=== PATIENT | female | born 1995 | race Caucasian/White ===

== ENCOUNTER 2017-05-11 04:29 | Inpatient (IN) | payer BC, OTHER ==
[2017-05-11 05:35] LABS: Basophils % (A) 0 %; CH 30.9; CHCM 34.7; Eosinophils % (A) 0 %; HCT 34.8 % (34.0-46.0); HDW 2.68; HGB 12.5 gm/dL (11.4-16.0); Luc # (Auto) 0.11; Luc % (Auto) 1; Lymphocytes # (A) 1.3 k/uL (1.0-4.8); Lymphocytes % (A) 7 %; MCHC 35.9 g/dL (31.0-37.0); MCV 89.2 fL (80.0-100.0); Monocytes # (A) 0.8 k/uL (0-1.0); Monocytes % (A) 4 %; Neutrophils # (A) 16.5 k/uL (1.3-7.7); Neutrophils % (A) 88 %; RDW 14.3 % (11.5-15.5); WBC 18.7 k/uL (4.0-11.0); WBC (Perox) 18.06
[2017-05-11 05:41] LABS: Appearance,Urine Cloudy (Clear); Bacteria,Urine Rare /hpf; Bilirubin,Urine Negative (Negative); Glucose,Urine (UA) Negative (Negative); Ketones,Urine 1+ (Negative); Leukocyte Esterase,Urine Trace (Negative); Mucus,Urine Rare /hpf; Nitrite,Urine Negative (Negative); PH, Urine 5.5 (5.0-8.0); Particle Count 8193; Protein,Urine Negative (Negative); RBC,Urine 1 /hpf (0-5); Specific Gravity,Urine 1.016 (1.001-1.035); Squamous Epithelial Cell,Urine 12 /hpf (0-4); UA Billing (MACRO vs. MICRO) MICRO; Urobilinogen,Urine <2.0 mg/dL (<2.0); WBC,Urine 6 /hpf (0-5)
[2017-05-11 05:50] LABS: ALT 20 U/L (9-52); AST 17 U/L (14-36); Alkaline Phosphatase 54 U/L (38-126); Amylase 45 U/L (30-110); Anion Gap 12 mmol/L; Blood Urea Nitrogen 9 mg/dL (7-17); Calcium 9.3 mg/dL (8.4-10.2); Carbon Dioxide 21 mmol/L (22-30); Chloride 105 mmol/L (98-107); Glucose 93 mg/dL (74-99); Non-African American GFR(MDRD) >60 (>60 ml/min/1.73 sqM); Sodium 138 mmol/L (137-145); Total Bilirubin 1.9 mg/dL (0.2-1.3); Total Protein 7.5 g/dL (6.3-8.2)
[2017-05-11] MEDS ORDERED: MORPHINE SULFATE 4 MG/ML SYRINGE IV STA (06:05)
[2017-05-11] MEDS ORDERED: RX INFO: IV CONTRAST WAS GIVEN 1 EACH MISC MISCELLANE PRN (06:05)
[2017-05-11] MEDS ORDERED: KETOROLAC 30 MG/ML 1 ML VIAL IVP STA ×2 (06:05→14:18)
[2017-05-11] MEDS ORDERED: ACETAMINOPHEN TAB 325 MG TAB PO STA (06:39)
[2017-05-11] MEDS ORDERED: AMPICILLIN-SULBACTAM 3 GM in SODIUM CHLORIDE 0.9% 100 ML IVPB STA (07:21)
--- NOTE | 2017-05-11 07:23 | CT ---
EXAM: CT Abdomen and Pelvis With Intravenous Contrast CLINICAL HISTORY: Patient having abdomen/gall bladder pain TECHNIQUE: Axial computed tomography images of the abdomen and pelvis with intravenous contrast. CTDI is 5.4 mGy and DLP is 397.5 mGy-cm. This CT exam was performed using one or more of the following dose reduction techniques: automated exposure control, adjustment of the mA and/or kV according to patient size, and/or use of iterative reconstruction technique. Coronal and sagittal reformatted images were created and reviewed. COMPARISON: No relevant prior studies available. FINDINGS: Lower thorax: No acute findings. ABDOMEN: Liver: Unremarkable. No mass. Gallbladder and bile ducts: Distended gallbladder with gallstone. No biliary obstruction. Pancreas: Unremarkable. No mass. No ductal dilation. Spleen: Unremarkable. No splenomegaly. Adrenals: Unremarkable. No mass. Kidneys and ureters: Cortical striated perfusion defect in bilateral kidneys are worrisome for pyelonephritis. Mild right perinephric stranding. 8 mm low-density lesion in the right kidney may be a cyst. No ureteral or bladder stone. No renal obstruction. Stomach and bowel: Mild fluid filled pelvic small bowel loops. No bowel obstruction or inflammatory changes. No mucosal thickening. Appendix: Normal appendix. PELVIS: Bladder: See above. Reproductive: 2.2 cm crenated enhancing left ovarian cyst/follicle. Small free fluid in the pelvis likely physiologic. ABDOMEN and PELVIS: Intraperitoneal space: See above. Bones/joints: Schmorl's nodules of the thoracic spine. No acute fracture. No dislocation. Soft tissues: Unremarkable. Vasculature: Unremarkable. No abdominal aortic aneurysm. Lymph nodes: Small mesenteric and retroperitoneal lymph nodes. IMPRESSION: 1. Distended gallbladder with gallstone. No biliary obstruction. 2. Cortical striated perfusion defect in bilateral kidneys are worrisome for pyelonephritis. Mild right perinephric stranding. No renal obstruction. 3. Normal appendix. 4. 2.2 cm crenated enhancing left ovarian cyst/follicle. Small free fluid in the pelvis likely physiologic.
--- NOTE | 2017-05-11 07:48 | ED ---
Abdominal Pain HPI - General Source: patient Mode of arrival: ambulatory Limitations: no limitations - History of Present Illness Complaint: abdominal pain Onset/Timin -: hour(s) Location: RUQ Radiation: none Severity: severe Quality: aching Consistency: constant Improves With: nothing Worsens With: other (Palpation) Associated Symptoms: nausea, vomiting - Related Data LMP (females 10-50): last week <Patrick Stevens - Last Filed: 05/11/17 07:49> <Robin Antunez - Last Filed: 05/11/17 08:29> - General Chief Complaint: Abdominal Pain Stated Complaint: abd/gall bladder pain Time Seen by Provider: 05/11/17 05:30 - History of Present Illness Initial Comments: This patient is a 21-year-old woman who presents to be evaluated for right upper quadrant pain. The patient states that the pain had been going on since about 10 PM last night. She has had multiple episodes of this and has been admitted in the hospital on 3 separate occasions previously. The patient describes the pain as an aching, continuous but with a little bit of colicky feature. The pain is now severe. She has not noted any relieving factors, but it is worsened by pressing on her abdomen. She has had a couple of rounds of vomiting and does have nausea. She denies any change in bowel movements, last of which was yesterday and was normal. She has not had any change in urination. She states that the last menstrual. She had was at the end of April and was normal. She does not have any vaginal discharge. (Patrick Stevens) - Related Data Home Medications Medication Instructions Recorded Confirmed No Known Home Medications [No 05/11/17 05/11/17 Known Home Medications] Allergies Allergy/AdvReac Type Severity Reaction Status Date / Time No Known Allergies Allergy Verified 05/11/17 07:26 Review of Systems ROS Other: All systems not noted in ROS Statement are negative. Constitutional: Reports: fever. Denies: chills Respiratory: Denies: cough, dyspnea Cardiovascular: Denies: chest pain, palpitations, edema Gastrointestinal: Reports: abdominal pain, nausea, vomiting. Denies: diarrhea, constipation, hematemesis, melena, hematochezia Genitourinary: Denies: dysuria, hematuria Musculoskeletal: Denies: back pain Skin: Denies: rash Neurological: Denies: headache, weakness, numbness <HildaPatrick - Last Filed: 05/11/17 07:49> ROS Other: All systems not noted in ROS Statement are negative. <Robin Antunez - Last Filed: 05/11/17 08:29> ROS Statement: Those systems with pertinent positive or pertinent negative responses have been documented in the HPI. Past Medical History Additional Past Medical History / Comment(s): "gall stones", "irreg heart beat" , kidney infection History of Any Multi-Drug Resistant Organisms: None Reported Past Surgical History: No Surgical Hx Reported Past Psychological History: No Psychological Hx Reported Smoking Status: Current some day smoker Past Alcohol Use History: Abuse, Daily Past Drug Use History: None Reported <Patrick Stevens - Last Filed: 05/11/17 07:49> General Exam Limitations: no limitations General appearance: alert, in no apparent distress Head exam: Absent: atraumatic, normocephalic Eye exam: Present: normal appearance. Absent: scleral icterus, conjunctival injection ENT exam: Present: normal oropharynx Neck exam: Present: normal inspection Respiratory exam: Present: normal lung sounds bilaterally. Absent: respiratory distress, wheezes, rales, rhonchi, stridor Cardiovascular Exam: Present: regular rate, normal rhythm, normal heart sounds. Absent: systolic murmur, diastolic murmur, rubs, gallop GI/Abdominal exam: Present: soft, tenderness (Right upper quadrant), normal bowel sounds. Absent: distended, guarding, rebound, rigid, mass, pulsatile mass , hernia Extremities exam: Present: normal inspection, normal capillary refill. Absent: pedal edema, calf tenderness Back exam: Present: normal inspection. Absent: CVA tenderness (R), CVA tenderness (L) Neurological exam: Present: alert Psychiatric exam: Present: normal affect Skin exam: Present: warm, dry, intact, normal color. Absent: rash <Patrick Stevens - Last Filed: 05/11/17 07:49> Course <Patrick Stevens - Last Filed: 05/11/17 07:49> <Robin Antunez - Last Filed: 05/11/17 08:29> Vital Signs 05/11/17 05/11/17 04:39 06:34 Temperature 100.9 F H 102.4 F H Pulse Rate 89 87 Respiratory 16 18 Rate Blood Pressure 97/53 95/62 O2 Sat by Pulse 99 98 Oximetry - Reevaluation(s) Reevaluation #1: 05/11/17 07:23 Patient reevaluated by myself, Dr. Antunez. Patient resting comfortably in bed. Abdomen soft with moderate right upper quadrant tenderness. Patient was updated on results. 05/11/17 08:27 Case was discussed with Dr. Espinosa, who will admit for surgical call. 05/11/17 08:27 Patient does meet sepsis criteria diagnosed at 8:20 AM. Patient has been given antibiotics and IV fluids. Lactic acid was drawn. Blood cultures were drawn. Admission orders written. (Robin Antunez) Medical Decision Making - Lab Data Result diagrams: 05/11/17 05:00 05/11/17 05:00 <Patrick Stevens - Last Filed: 05/11/17 07:49> - Lab Data Result diagrams: 05/11/17 05:00 05/11/17 05:00 - Radiology Data Radiology results: report reviewed (Computed tomography scan of the abdomen pelvis shows distended gallbladder with gallstones. Possible pyelonephritis. Normal appendix. 2 cm left ovary cyst/follicle.) <Robin Antunez - Last Filed: 05/11/17 08:29> - Lab Data Lab Results 05/11/17 05/11/17 05/11/17 Range/Units 05:00 05:00 05:00 WBC 18.7 H (4.0-11.0) k/uL RBC 3.90 (3.80-5.40) m/uL Hgb 12.5 (11.4-16.0) gm/dL Hct 34.8 (34.0-46.0) % MCV 89.2 (80.0-100.0) fL MCH 32.0 (25.0-35.0) pg MCHC 35.9 (31.0-37.0) g/dL RDW 14.3 (11.5-15.5) % Plt Count 311 (150-450) k/uL Neutrophils % 88 % Lymphocytes % 7 % Monocytes % 4 % Eosinophils % 0 % Basophils % 0 % Neutrophils # 16.5 H (1.3-7.7) k/uL Lymphocytes # 1.3 (1.0-4.8) k/uL Monocytes # 0.8 (0-1.0) k/uL Eosinophils # 0.0 (0-0.7) k/uL Basophils # 0.0 (0-0.2) k/uL Sodium 138 (137-145) mmol/L Potassium 4.0 (3.5-5.1) mmol/L Chloride 105 (98-107) mmol/L Carbon Dioxide 21 L (22-30) mmol/L Anion Gap 12 mmol/L BUN 9 (7-17) mg/dL Creatinine 0.77 (0.52-1.04) mg/dL Est GFR (MDRD) Af Amer >60 (>60 ml/min/1.73 sqM) Est GFR (MDRD) Non-Af >60 (>60 ml/min/1.73 sqM) Glucose 93 (74-99) mg/dL Plasma Lactic Acid Wilberto (0.7-2.0) mmol/L Calcium 9.3 (8.4-10.2) mg/dL Total Bilirubin 1.9 H (0.2-1.3) mg/dL AST 17 (14-36) U/L ALT 20 (9-52) U/L Alkaline Phosphatase 54 (38-126) U/L Total Protein 7.5 (6.3-8.2) g/dL Albumin 4.4 (3.5-5.0) g/dL Amylase 45 (30-110) U/L Lipase 97 (23-300) U/L Urine Color Urine Appearance (Clear) Urine pH (5.0-8.0) Ur Specific [place] (1.001-1.035) Urine Protein (Negative) Urine Glucose (UA) (Negative) Urine Ketones (Negative) Urine Blood (Negative) Urine Nitrite (Negative) Urine Bilirubin (Negative) Urine Urobilinogen (<2.0) mg/dL Ur Leukocyte Esterase (Negative) Urine RBC (0-5) /hpf Urine WBC (0-5) /hpf Ur Squamous Epith Cells (0-4) /hpf Urine Bacteria (None) /hpf Urine Mucus (None) /hpf Urine HCG, Qual Not Detected (Not Detectd) 05/11/17 05/11/17 Range/Units 05:00 05:00 WBC (4.0-11.0) k/uL RBC (3.80-5.40) m/uL Hgb (11.4-16.0) gm/dL Hct (34.0-46.0) % MCV (80.0-100.0) fL MCH (25.0-35.0) pg MCHC (31.0-37.0) g/dL RDW (11.5-15.5) % Plt Count (150-450) k/uL Neutrophils % % Lymphocytes % % Monocytes % % Eosinophils % % Basophils % % Neutrophils # (1.3-7.7) k/uL Lymphocytes # (1.0-4.8) k/uL Monocytes # (0-1.0) k/uL Eosinophils # (0-0.7) k/uL Basophils # (0-0.2) k/uL Sodium (137-145) mmol/L Potassium (3.5-5.1) mmol/L Chloride (98-107) mmol/L Carbon Dioxide (22-30) mmol/L Anion Gap mmol/L BUN (7-17) mg/dL Creatinine (0.52-1.04) mg/dL Est GFR (MDRD) Af Amer (>60 ml/min/1.73 sqM) Est GFR (MDRD) Non-Af (>60 ml/min/1.73 sqM) Glucose (74-99) mg/dL Plasma Lactic Acid Wilberto 0.8 (0.7-2.0) mmol/L Calcium (8.4-10.2) mg/dL Total Bilirubin (0.2-1.3) mg/dL AST (14-36) U/L ALT (9-52) U/L Alkaline Phosphatase (38-126) U/L Total Protein (6.3-8.2) g/dL Albumin (3.5-5.0) g/dL Amylase (30-110) U/L Lipase (23-300) U/L Urine Color Yellow Urine Appearance Cloudy H (Clear) Urine pH 5.5 (5.0-8.0) Ur Specific [place] 1.016 (1.001-1.035) Urine Protein Negative (Negative) Urine Glucose (UA) Negative (Negative) Urine Ketones 1+ H (Negative) Urine Blood Negative (Negative) Urine Nitrite Negative (Negative) Urine Bilirubin Negative (Negative) Urine Urobilinogen <2.0 (<2.0) mg/dL Ur Leukocyte Esterase Trace H (Negative) Urine RBC 1 (0-5) /hpf Urine WBC 6 H (0-5) /hpf Ur Squamous Epith Cells 12 H (0-4) /hpf Urine Bacteria Rare H (None) /hpf Urine Mucus Rare H (None) /hpf Urine HCG, Qual (Not Detectd) Disposition <Patrick Stevens - Last Filed: 05/11/17 07:49> Decision Time: 08:29 <Robin Antunez - Last Filed: 05/11/17 08:29> Clinical Impression: Sepsis, Acute cholecystitis Disposition: ADMITTED IP TO THIS HOSP Referrals: Nonstaff,Physician [REFERRING] - 1-2 days
[2017-05-11] MEDS ORDERED: SODIUM CHLORIDE 0.9% 1,000 ML IV STA (08:27)
[2017-05-11] MEDS ORDERED: NALOXONE 0.4 MG/ML 1 ML VIAL IV PRN (08:29)
--- NOTE | 2017-05-11 09:33 | P.GSHP ---
History of Present Illness H&P Date: 05/11/17 Chief Complaint: Acute cholecystitis The patient is a 21-year-old female who has a long-standing history of gallstones over the last 5 years. She delayed any surgery secondary to her fear of being under from general anesthesia. Separately she had a recent attack approximately 2-3 weeks ago. She was seen in [facility] where she was told she may have passed a stone. She subsequently was released. She reports that her last meal was a banana yesterday. Since then she complains of persistent right upper quadrant abdominal pain. - Review of Systems Comment: REVIEW OF ORGAN SYSTEMS: CONSTITUTIONAL: Has fevers. Has recent weight loss. HEENT: Denies any trouble with vision, hearing or nosebleeds. No difficulty swallowing. LYMPHATIC: The patient denies any lumps and bumps around the neck. ENDOCRINE: Denies any thyroid disorders. Denies any blood sugar glucose intolerance. RESPIRATORY: Denies pneumonia. Denies any troubles with breathing or dyspnea on exertion. CARDIOVASCULAR: Denies any chest pain, palpitations, or recent heart attacks. GASTROINTESTINAL: Denies heart burn, constipation or bright red blood per rectum. GENITOURINARY: Denies any blood in urine or increased urinary frequency. MUSCULOSKELETAL: Denies any back pain, stiffness, joint arthritis. NEUROLOGIC: Denies any numbness or tingling along the distal extremities. No seizure disorders or headaches. PSYCHIATRIC: Denies depression or suidical ideation. Has anxiety. HEMATOLOGIC: Denies any abnormal bleeding or bruising. Past Medical History Additional Past Medical History / Comment(s): "gall stones", "irreg heart beat" , kidney infection. History of Any Multi-Drug Resistant Organisms: None Reported Past Surgical History: No Surgical Hx Reported Additional Past Anesthesia/Blood Transfusion Reaction / Comment(s): Pt has never had anesthesia. Past Psychological History: Anxiety Additional Psychological History / Comment(s): Pt resides with her father. She is independent. Smoking Status: Current some day smoker Past Alcohol Use History: Abuse, Daily Additional Past Alcohol Use History / Comment(s): Pt states she has 1-2 alcoholic beverages a day. Past Drug Use History: Marijuana Additional Drug Use History / Comment(s): Pt occasionally smokes marijuana. - Past Family History Mother Family Medical History: No Reported History Father Family Medical History: Renal Disease Additional Family Medical History / Comment(s): Father has had kidney stones. Medications and Allergies Home Medications Medication Instructions Recorded Confirmed Type No Known Home Medications [No 05/11/17 05/11/17 History Known Home Medications] Allergies Allergy/AdvReac Type Severity Reaction Status Date / Time No Known Allergies Allergy Verified 05/11/17 07:26 Surgical - Exam Vital Signs Temp Pulse Resp BP Pulse Ox 100.9 F H 89 16 97/53 99 05/11/17 04:39 05/11/17 04:39 05/11/17 04:39 05/11/17 04:39 05/11/17 04:39 GENERAL: Well developed and in no acute distress. Pleasant. HEENT: No sclera icterus. Extraocular movements grossly intact. Moist buccal mucosa. Head is atraumatic, normocephalic. Hears conversational speech. No nasal drainage. NECK: Supple without lymphadenopathy. No JV distention. CHEST: Non-labored respirations and equal bilateral excursions. CARDIOVASCULAR: Regular rate and rhythm. Palpable 2+ radial pulses. ABDOMEN: Soft. Nondistended. Tender along right upper quadrant. No diffuse peritonitis. MUSCULOSKELETAL: No clubbing, cyanosis or edema. NEUROLOGIC: No focal or lateralizing signs. PSYCH: Appropriate affect. Alert and oriented to person, place and time. Results - Labs 05/11/17 05:00 05/11/17 05:00 Abnormal Lab Results - Last 24 Hours (Table) 05/11/17 05/11/17 05/11/17 Range/Units 05:00 05:00 05:00 WBC 18.7 H (4.0-11.0) k/uL Neutrophils # 16.5 H (1.3-7.7) k/uL Carbon Dioxide 21 L (22-30) mmol/L Total Bilirubin 1.9 H (0.2-1.3) mg/dL Urine Appearance Cloudy H (Clear) Urine Ketones 1+ H (Negative) Ur Leukocyte Esterase Trace H (Negative) Urine WBC 6 H (0-5) /hpf Ur Squamous Epith Cells 12 H (0-4) /hpf Urine Bacteria Rare H (None) /hpf Urine Mucus Rare H (None) /hpf Diabetes panel 05/11/17 Range/Units 05:00 Sodium 138 (137-145) mmol/L Potassium 4.0 (3.5-5.1) mmol/L Chloride 105 (98-107) mmol/L Carbon Dioxide 21 L (22-30) mmol/L BUN 9 (7-17) mg/dL Creatinine 0.77 (0.52-1.04) mg/dL Glucose 93 (74-99) mg/dL Calcium 9.3 (8.4-10.2) mg/dL AST 17 (14-36) U/L ALT 20 (9-52) U/L Alkaline Phosphatase 54 (38-126) U/L Total Protein 7.5 (6.3-8.2) g/dL Albumin 4.4 (3.5-5.0) g/dL Calcium panel 05/11/17 Range/Units 05:00 Calcium 9.3 (8.4-10.2) mg/dL Albumin 4.4 (3.5-5.0) g/dL Pituitary panel 05/11/17 Range/Units 05:00 Sodium 138 (137-145) mmol/L Potassium 4.0 (3.5-5.1) mmol/L Chloride 105 (98-107) mmol/L Carbon Dioxide 21 L (22-30) mmol/L BUN 9 (7-17) mg/dL Creatinine 0.77 (0.52-1.04) mg/dL Glucose 93 (74-99) mg/dL Calcium 9.3 (8.4-10.2) mg/dL Adrenal panel 05/11/17 Range/Units 05:00 Sodium 138 (137-145) mmol/L Potassium 4.0 (3.5-5.1) mmol/L Chloride 105 (98-107) mmol/L Carbon Dioxide 21 L (22-30) mmol/L BUN 9 (7-17) mg/dL Creatinine 0.77 (0.52-1.04) mg/dL Glucose 93 (74-99) mg/dL Calcium 9.3 (8.4-10.2) mg/dL Total Bilirubin 1.9 H (0.2-1.3) mg/dL AST 17 (14-36) U/L ALT 20 (9-52) U/L Alkaline Phosphatase 54 (38-126) U/L Total Protein 7.5 (6.3-8.2) g/dL Albumin 4.4 (3.5-5.0) g/dL - Imaging CT scan - abdomen: report reviewed, image reviewed CT scan - pelvis: report reviewed, image reviewed (Images reviewed consistent with gallbladder with gallstone. No free fluid identified within the pelvis.) Assessment and Plan (1) Right upper quadrant pain Status: Acute (2) Anxiety Status: Acute (3) Acute cholecystitis Status: Acute (4) Sepsis Status: Acute (5) Elevated bilirubin Status: Acute Plan: 1. She has features consistent with sepsis. Recommend IV antibiotics. 2. Aggressive IV fluid hydration. 3. Full inpatient hospitalization secondary to sepsis. 4. Will repeat complete metabolic panel for choledocholithiasis. 5. Surgical intervention pending resolution of elevated bilirubin.
[2017-05-11] MEDS: SODIUM CHLORIDE 0.9% 2,000 ML IV ONE ×2 (10:07→11:21)
[2017-05-11] MEDS: SODIUM CHLORIDE 0.9% 1,000 ML IV SCH ×2 (10:07→19:07)
[2017-05-11] MEDS: metroNIDAZOLE-NS PMX 500 MG in SALINE 1 100ML.BAG IVPB SCH ×2 (10:09→16:50)
[2017-05-11] MEDS: PANTOPRAZOLE 40 MG/10 ML VIAL IV SCH (10:10)
[2017-05-11] MEDS: AMPICILLIN-SULBACTAM 3 GM in SODIUM CHLORIDE 0.9% 100 ML IVPB SCH ×3 (12:28→22:51)
[2017-05-11] MEDS: MORPHINE SULFATE 4 MG/ML SYRINGE IV PRN ×2 (12:28→19:31)
[2017-05-11] MEDS: ACETAMINOPHEN IV (For NPO) 650 MG in EMPTY BAG 1 BAG IVPB SCH ×2 (15:32→21:21)
[2017-05-11 15:57] LABS: Basophils % (A) 0 %; CH 30.4; CHCM 33.6; Eosinophils % (A) 0 %; HCT 31.9 % (34.0-46.0); HDW 2.64; HGB 10.7 gm/dL (11.4-16.0); Luc # (Auto) 0.08; Luc % (Auto) 1; Lymphocytes # (A) 0.9 k/uL (1.0-4.8); Lymphocytes % (A) 6 %; MCH 30.6 pg (25.0-35.0); MCHC 33.7 g/dL (31.0-37.0); MCV 90.7 fL (80.0-100.0); Mean Platelet Volume 8.6; Monocytes # (A) 0.8 k/uL (0-1.0); Monocytes % (A) 5 %; Neutrophils # (A) 13.7 k/uL (1.3-7.7); Neutrophils % (A) 89 %; RBC 3.51 m/uL (3.80-5.40); RDW 14.1 % (11.5-15.5); WBC 15.5 k/uL (4.0-11.0); WBC (Perox) 15.33
[2017-05-11 16:16] LABS: ALT 23 U/L (9-52); AST 13 U/L (14-36); Alkaline Phosphatase 45 U/L (38-126); Anion Gap 8 mmol/L; Blood Urea Nitrogen 7 mg/dL (7-17); Calcium 8.2 mg/dL (8.4-10.2); Carbon Dioxide 21 mmol/L (22-30); Chloride 110 mmol/L (98-107); Glucose 94 mg/dL (74-99); Non-African American GFR(MDRD) >60 (>60 ml/min/1.73 sqM); Sodium 139 mmol/L (137-145); Total Bilirubin 1.9 mg/dL (0.2-1.3); Total Protein 5.8 g/dL (6.3-8.2)
[2017-05-11 16:17] LABS: Potassium 3.7 mmol/L (3.5-5.1)
[2017-05-11] MEDS: HEPARIN SODIUM,PORCINE 5,000 UNIT/ML 1 ML VIAL SQ SCH (17:02)
[2017-05-11] MEDS ORDERED: KETOROLAC 30 MG/ML 1 ML VIAL IVP SCH (18:00)
[2017-05-12] MEDS: metroNIDAZOLE-NS PMX 500 MG in SALINE 1 100ML.BAG IVPB SCH ×4 (00:02→23:40)
[2017-05-12] MEDS: HEPARIN SODIUM,PORCINE 5,000 UNIT/ML 1 ML VIAL SQ SCH ×4 (00:05→23:40)
[2017-05-12] MEDS: SODIUM CHLORIDE 0.9% 1,000 ML IV SCH ×3 (02:37→21:39)
[2017-05-12] MEDS: ONDANSETRON 4 MG/2 ML VIAL IVP PRN ×2 (02:37→13:35)
[2017-05-12] MEDS: MORPHINE SULFATE 4 MG/ML SYRINGE IV PRN ×3 (03:07→12:19)
[2017-05-12] MEDS: ACETAMINOPHEN IV (For NPO) 650 MG in EMPTY BAG 1 BAG IVPB SCH ×2 (03:22→09:45)
[2017-05-12] MEDS: AMPICILLIN-SULBACTAM 3 GM in SODIUM CHLORIDE 0.9% 100 ML IVPB SCH ×4 (05:27→23:39)
[2017-05-12 07:16] LABS: Basophils % (A) 0 %; CH 30.7; CHCM 33.9; Eosinophils % (A) 0 %; HCT 31.5 % (34.0-46.0); HDW 2.68; HGB 10.9 gm/dL (11.4-16.0); Luc # (Auto) 0.14; Luc % (Auto) 1; Lymphocytes # (A) 1.1 k/uL (1.0-4.8); Lymphocytes % (A) 7 %; MCH 31.6 pg (25.0-35.0); MCHC 34.6 g/dL (31.0-37.0); MCV 91.1 fL (80.0-100.0); Mean Platelet Volume 7.3; Monocytes # (A) 0.8 k/uL (0-1.0); Monocytes % (A) 5 %; Neutrophils # (A) 14.4 k/uL (1.3-7.7); Neutrophils % (A) 87 %; RBC 3.46 m/uL (3.80-5.40); RDW 14.3 % (11.5-15.5); WBC 16.4 k/uL (4.0-11.0); WBC (Perox) 17.03
[2017-05-12 08:13] LABS: ALT 19 U/L (9-52); AST 13 U/L (14-36); Alkaline Phosphatase 44 U/L (38-126); Anion Gap 9 mmol/L; Blood Urea Nitrogen 5 mg/dL (7-17); Calcium 8.3 mg/dL (8.4-10.2); Carbon Dioxide 22 mmol/L (22-30); Chloride 106 mmol/L (98-107); Glucose 84 mg/dL (74-99); Non-African American GFR(MDRD) >60 (>60 ml/min/1.73 sqM); Potassium 3.7 mmol/L (3.5-5.1); Sodium 137 mmol/L (137-145); Total Bilirubin 1.3 mg/dL (0.2-1.3); Total Protein 5.7 g/dL (6.3-8.2)
--- NOTE | 2017-05-12 08:58 | US ---
EXAMINATION TYPE: US gallbladder DATE OF EXAM: 05/12/2017 COMPARISON: CT 05/11/2017 CLINICAL HISTORY: Right upper quadrant pain. EXAM MEASUREMENTS: Liver Length: 16.0 cm Gallbladder Wall: 0.3 cm CBD: 0.7 cm Right Kidney: 11.7 x 4.6 x 6.2 cm Pancreas: wnl Liver: homogeneous Gallbladder: gallstone, debris (sludge) within gb, pericholecystic fluid Evidence for sonographic Escobar's sign: no CBD: mildly dilated Right Kidney: No hydronephrosis or masses seen The pancreas is unremarkable. The liver is normal in size without evidence of biliary dilatation. There is a gallstone and some sludge within the gallbladder. Gallbladder wall measures 3 mm. The disc ogram hepatic duct measures 7 mm. This is enlarged. There is some pericholecystic fluid. There is no sonographic Escobar's sign. The right kidney is normal. IMPRESSION: CHOLELITHIASIS AND PROBABLE ACUTE CHOLECYSTITIS.
[2017-05-12] MEDS: PANTOPRAZOLE 40 MG/10 ML VIAL IV SCH (09:45)
[2017-05-12 10:31] LABS: Iron 12 ug/dL (37-170)
[2017-05-12 10:42] LABS: % Iron Saturation 4.6 % (20-50); Total Iron Binding Capacity 261 ug/dL (265-497)
[2017-05-12 11:34] VITALS: BMI 21.6
--- NOTE | 2017-05-12 11:54 | P.HPADDEND ---
H&P Addendum H&P Addendum Date: 05/12/17 Patient presents with sepsis. Still has right upper quadrant abdominal pain. Recommend proceeding with a robotic-assisted laparoscopic cholecystectomy versus laparoscopic cholecystectomy.
[2017-05-12] MEDS ORDERED: LACTATED RINGERS 1,000 ML IV ONE ×2 (13:29→16:06)
[2017-05-12] MEDS ORDERED: MIDAZOLAM 2 MG/2 ML VIAL IVP ONE (13:57)
[2017-05-12] MEDS ORDERED: ROCURONIUM BROMIDE 10 MG/ML 10 ML VIAL IV ONE (15:11)
[2017-05-12] MEDS ORDERED: GLYCOPYRROLATE 0.2 MG/ML 2 ML VIAL ONE (15:11)
[2017-05-12] MEDS ORDERED: LIDOCAINE 1% INJ 10MG/ML (20 ML MDV) ONE (15:11)
[2017-05-12] MEDS ORDERED: SUCCINYLCHOLINE CHLORIDE 100 MG/5 ML SYR IV ONE (15:11)
[2017-05-12] MEDS ORDERED: NEOSTIGMINE 1 MG/ML 10 ML VIAL ONE (15:11)
[2017-05-12] MEDS ORDERED: ceFAZolin 2 GM in SODIUM CHLORIDE 0.9% 100 ML IVPB STA (15:11)
[2017-05-12] MEDS ORDERED: MIDAZOLAM 2 MG/2 ML VIAL ONE (15:11)
[2017-05-12] MEDS ORDERED: KETOROLAC 30 MG/ML 1 ML VIAL ONE (15:11)
[2017-05-12] MEDS ORDERED: MEPERIDINE 50 MG/ML SYRINGE ONE (15:11)
[2017-05-12] MEDS ORDERED: PROPOFOL 10 MG/ML 20 ML VIAL IV ONE (15:11)
[2017-05-12] MEDS ORDERED: fentaNYL (PF) 50 MCG/ML 2 ML AMP ONE (15:11)
[2017-05-12] MEDS ORDERED: BUPIVACAIN-EPI 0.5%-1:200,000 30 ML VIAL SQ ONE ×2 (15:18→16:08)
[2017-05-12] MEDS ORDERED: SODIUM CHLORIDE 0.9% 100 ML with ceFAZolin 2,000 MG IV ONE ×2 (15:20)
[2017-05-12] MEDS ORDERED: HYDROcodone/APAP 5-325MG 1 EACH TAB PO PRN (16:19)
--- NOTE | 2017-05-12 16:19 | P.OP ---
Date of Procedure: 05/12/17 Preoperative Diagnosis: Postoperative Diagnosis: Procedure(s) Performed: Implants: Indications for Procedure: Operative Findings: Description of Procedure: SURGEON: SIVA LEDEZMA MD SAND TECHNICIAN: None. PREOPERATIVE DIAGNOSES: 1. Acute cholecystitis. 2. Sepsis secondary to acute cholecystitis. 3. Right upper quadrant abdominal pain. 4. Leukocytosis. 5. Fever. 6. History of tobacco abuse. 7. History of gallstones. POSTOPERATIVE DIAGNOSES: 1. Acute cholecystitis. 2. Sepsis secondary to acute cholecystitis. 3. Right upper quadrant abdominal pain. 4. Leukocytosis. 5. Fever. 6. History of tobacco abuse. 7. History of gallstones. 8. Acute cholecystitis with cystic duct obstruction. 9. Hepatomegaly. OPERATION: Laparoscopic cholecystectomy ANESTHESIA: General with 30 mL 0.25% Marcaine with epinephrine. ESTIMATED BLOOD LOSS: 5 mL. SPECIMENS REMOVED: Gallbladder. COMPLICATIONS: None. INDICATIONS: The patient is a 21-year-old male who presents with sepsis secondary to acute cholecystitis. Surgical intervention with a laparoscopic cholecystectomy was described at length including injury to the biliary tree, bleeding, infection, need for further surgery. Informed consent was obtained. DESCRIPTION OF THE PROCEDURE: The patient was brought to the operating room, laid in supine position. After general induction, the abdomen was prepped and draped in a standard sterile fashion. Prior to incision, a timeout protocol was confirmed with surgical team regarding patient's name, procedure to be performed including preoperative medications for which she had received heparin 5000 units subcutaneously as well as bilateral SCDs for DVT prophylaxis. A transverse 5 mm incision was made above the umbilicus and off to the right of the midline. Please note the skin was localized prior to incision. A 0 degree 5-mm laparoscopic trocar entry was performed and entered into the peritoneal cavity. Diagnostic laparoscopy confirmed no injury to bowel, viscera or mesentery. The liver serosa was completely unremarkable. Next, two 5 mm trocars were placed along the right costal margin followed by a 11 mm port at the left upper quadrant. Adhesions were found along the gallbladder infundibulum. Free fluid was found in the pelvis. Moderate hepatomegaly was found adding complexity to her case. The patient was placed in steep reverse Trendelenburg position with the right side up. The gallbladder fundus was retracted over the dome of the liver. Initial attention was brought to the infundibulum which was gently retracted in the inferior lateral approach. Using a Kittner, the cystic duct including the cystic artery was carefully skeletonized. Using a large clip behavioral psychologist 2 clips were placed proximally, and 1 clip was placed distally along the cystic duct and then cut. Again care was taken to avoid any injury to the biliary tree as the common bile duct was clearly visualized during this portion of dissection. Next, the cystic artery was clipped twice proximally, once distally and then cauterized. Electro-Bovie cautery was used to remove the gallbladder from the hepatic fossa without decompression of the gallbladder. Hemostasis was checked and found to be adequate. The gallbladder was removed from the abdominal cavity using an Endo Catch bag and passed off for further pathological analysis. All instruments and pneumoperitoneum were removed from the abdominal cavity. The fascial defect was less than 8 mm in size. The rest of incisions were reapproximated using 4-0 Monocryl in an interrupted subcuticular fashion. A total of 30 mL of 0.25% Marcaine with epinephrine was infiltrated to all wounds for postop analgesia. Dermabond was applied to the skin. At the end of the procedure, needle, sponge, and instrument count was verified correct by surgical orderly. The patient had tolerated the procedure well and was taken to postanesthesia care unit in stable condition. Intraoperative films were discussed and reviewed with the patient's family. FINDINGS: 1. Acute cholecystitis with cystic duct obstruction. 2. Unremarkable liver surface. 3. Hepatomegaly. 4. Free fluid in the pelvis.
[2017-05-12 16:48] VITALS: RESP 16
[2017-05-12] MEDS: METOCLOPRAMIDE 5 MG/ML 2 ML VIAL IVP PRN (18:55)
--- NOTE | 2017-05-12 21:51 | P.CONS ---
History of Present Illness - Reason for Consult Consult date: 05/12/17 - Chief Complaint Abdominal pain - History of Present Illness 21-year-old female presents to hospital with the sudden and significant abdominal pain. She relates to a fascinating history of some ongoing abdominal pain over the last several months. She's actually had 2 relatively long hospitalizations at outside hospitals. Biliary dyskinesia was noted. However cholecystectomy was not performed. She recently was another outside hospital where she was thought to have passed a gallstone. She rapidly improved and was discharged for outpatient follow-up. She now presents to the emergency center with pain 10 out of 10 and in agony. Workup was performed that showed evidence of acute cholecystitis as well as likely stone lodged in the common bile duct. Consequently the patient was taken to the operating room today and the laparoscopic cholecystectomy was performed. The patient is no postoperative feeling considerably better. The infectious diseases consultation is requested regarding her antibiotic therapy and plans for home antibiotics at her discharge. This was on relates that she is nothing considerably better. She's been able to eat a Popsicle and a lemon ice without nausea or emesis. Her abdominal pain is improving. She is awaiting her fever and chill at now resolved. and definitely is improved this evening from earlier today. She is the new symptoms at this time. Review of Systems HEENT:Denies headache or acute visual change. Denies sinus or mouth discomforts. Denies neck stiffness or pain. Denies significant oral cavity pain. Denies difficulty on swallowing. Did have some fever and chill. Lungs: Denies significant shortness of breath, cough, sputum production, or hemoptysis. Cardiovascular: Denies significant shortness of breath, chest pain, chest wall pain, orthopnea, dyspnea on exertion, syncope Gastrointestinal: Has significant nausea emesis and severe right upper quadrant pain that was colicky in nature and is now much improved status post a cholecystectomy. She has no nausea and is able to take some clear liquids without problems. Musculoskeletal: denies significant myalgias or arthralgias. No new joint swelling. Denies new back pain. Skin: Denies new rash or lesions. No new ulcers or wounds are related.. Neuro: Denies headache or visual change. Denies any new onset weakness or difficulty with ambulation. Denies falls or seizures. Psychiatric:Denies anxiety or depression. Endocrine: Denies significant fatigue, denies significant weight loss or weight gain. Past Medical History Additional Past Medical History / Comment(s): "gall stones", "irreg heart beat" , kidney infection. History of Any Multi-Drug Resistant Organisms: None Reported Past Surgical History: No Surgical Hx Reported Additional Past Anesthesia/Blood Transfusion Reaction / Comm: Pt has never had anesthesia. Past Psychological History: Anxiety Additional Psychological History / Comment(s): Pt resides with her father. She is independent.Works at a local restaurant. Is not currently in school. Animal exposure with pet dog. Does have exposure to her mother. Is not a current tobacco smoker no evidence of any recreational drug use. No experience. No international travel Smoking Status: Current some day smoker Past Alcohol Use History: Abuse, Daily Additional Past Alcohol Use History / Comment(s): Pt states she has 1-2 alcoholic beverages a day. Past Drug Use History: Marijuana Additional Drug Use History / Comment(s): Pt occasionally smokes marijuana. - Past Family History Mother Family Medical History: No Reported History Father Family Medical History: Renal Disease Additional Family Medical History / Comment(s): Father has had kidney stones. Medications and Allergies Home Medications and Allergies Comment(s): Current Medications Hydrocodone Bitart/Acetaminophen ([place] 5-325) 1 each PO Q4HR PRN PRN Reason: Mild Pain Heparin Sodium (Porcine) (Heparin) 5,000 unit SQ Q8HR [facility] Last Admin: 05/12/17 13:36 Dose: 5,000 unit Sodium Chloride (Saline 0.9%) 1,000 mls @ 110 mls/hr IV .Q9H6M [facility] Last Admin: 05/12/17 21:39 Dose: 110 mls/hr Ampicillin Sodium/Sulbactam (Sodium 3 gm/ Sodium Chloride) 100 mls @ 100 mls/ hr IVPB Q6HR [facility] Last Admin: 05/12/17 18:46 Dose: 100 mls/hr Metronidazole 500 mg/ IV (Solution) 100 mls @ 100 mls/hr IVPB Q8HR [facility] Last Admin: 05/12/17 17:33 Dose: 100 mls/hr Metoclopramide HCl (Reglan) 10 mg IVP Q6H PRN PRN Reason: Nausea And Vomiting Last Admin: 05/12/17 18:55 Dose: 10 mg Miscellaneous Information (Rx Info: Iv Contrast Was Given) 1 each MISCELLANE DAILY PRN PRN Reason: Per Protocol Stop: 05/13/17 06:05 Last Admin: 05/11/17 06:27 Dose: 1 each Morphine Sulfate (Morphine Sulfate (Inj)) 4 mg IV Q4HR PRN PRN Reason: Severe Pain Last Admin: 05/12/17 12:19 Dose: 4 mg Naloxone HCl (Narcan) 0.2 mg IV Q2M PRN PRN Reason: Opioid Reversal Ondansetron HCl (Zofran) 4 mg IVP Q8HR PRN PRN Reason: Nausea And Vomiting Last Admin: 05/12/17 13:35 Dose: 4 mg Pantoprazole Sodium (Protonix) 40 mg IV DAILY [facility] Last Admin: 05/12/17 09:45 Dose: 40 mg Home Medications Medication Instructions Recorded Confirmed Type No Known Home Medications [No 05/11/17 05/12/17 History Known Home Medications] Allergies Allergy/AdvReac Type Severity Reaction Status Date / Time No Known Allergies Allergy Verified 05/12/17 13:39 Physical Exam Vitals: Vital Signs Temp Pulse Resp BP Pulse Ox 05/12/17 17:54 16 05/12/17 16:40 74 16 102/60 96 05/12/17 16:35 73 18 106/54 96 05/12/17 16:20 99 F 99 18 95/50 97 05/12/17 13:30 97.2 F L 79 16 143/72 98 05/12/17 07:00 98.1 F 67 16 105/60 97 05/12/17 00:00 78 16 05/11/17 23:00 100.2 F H 78 16 111/59 98 Intake and Output 05/12/17 05/12/17 05/12/17 06:59 14:59 22:59 Intake Total 200 1050 Output Total 5 Balance 200 1045 Intake: IV 200 1050 Output: Estimated Blood Loss 5 Other: Voiding Method Toilet # Voids 1 2 Weight 60.781 kg Patient Weight 05/13/17 06:59 Weight 60.781 kg Pleasant 21-year-old female that has a pretty dense hawk, relates she' s been out of the family boat this summer. HEENT: Anicteric conjunctiva are pink and moist nasal mucosa grossly intact without significant lesions, there is no thrush. Neck: The neck is supple without significant lymphadenopathy or thyromegaly. Lungs: Good bilateral air entry without significant crackles or wheezing. There is no significant bronchial sounds. There is no egophony or dullness. Heart: Regular rate and rhythm with an audible S1-S2, no S3 no S4. There is no significant murmur click or rub, PMI was nondisplaced. Abdomen: Abdomen is quite tender to touch. Especially the right upper quadrant. But does not have guarding or rebound. She is not jaundiced. Extremities: The upper extremities have excellent pulses they are symmetric, no significant petechiae or telangiectasia. No splinter hemorrhages were noted. The lower extremities are free from significant edema. The peripheral pulses were 2+ and symmetric. Neuro: Awake alert oriented to person place and time. There are no acute new gross focal sensory motor deficits. Results CBC & Chem 7: 05/12/17 06:56 05/12/17 06:56 Labs: Abnormal Lab Results - Last 24 Hours (Table) 05/12/17 05/12/17 Range/Units 06:56 06:56 WBC 16.4 H (4.0-11.0) k/uL RBC 3.46 L (3.80-5.40) m/uL Hgb 10.9 L (11.4-16.0) gm/dL Hct 31.5 L (34.0-46.0) % Neutrophils # 14.4 H (1.3-7.7) k/uL BUN 5 L (7-17) mg/dL Calcium 8.3 L (8.4-10.2) mg/dL Iron 12 L (37-170) ug/dL TIBC 261 L (265-497) ug/dL % Saturation 4.6 L (20-50) % AST 13 L (14-36) U/L Total Protein 5.7 L (6.3-8.2) g/dL Albumin 3.0 L (3.5-5.0) g/dL Microbiology - Last 24 Hours (Table) 05/11/17 09:55 Urine Culture - Preliminary Urine,Voided Gram Neg Bacilli 05/11/17 05:00 Blood Culture - Preliminary Blood No Growth after 24 hours Laboratory Results WBC 16.4 k/uL (4.0-11.0) H 05/12/17 06:56 RBC 3.46 m/uL (3.80-5.40) L 05/12/17 06:56 Hgb 10.9 gm/dL (11.4-16.0) L 05/12/17 06:56 Hct 31.5 % (34.0-46.0) L 05/12/17 06:56 MCV 91.1 fL (80.0-100.0) 05/12/17 06:56 MCH 31.6 pg (25.0-35.0) 05/12/17 06:56 MCHC 34.6 g/dL (31.0-37.0) 05/12/17 06:56 RDW 14.3 % (11.5-15.5) 05/12/17 06:56 Plt Count 231 k/uL (150-450) 05/12/17 06:56 Neutrophils % 87 % 05/12/17 06:56 Lymphocytes % 7 % 05/12/17 06:56 Monocytes % 5 % 05/12/17 06:56 Eosinophils % 0 % 05/12/17 06:56 Basophils % 0 % 05/12/17 06:56 Neutrophils # 14.4 k/uL (1.3-7.7) H 05/12/17 06:56 Lymphocytes # 1.1 k/uL (1.0-4.8) 05/12/17 06:56 Monocytes # 0.8 k/uL (0-1.0) 05/12/17 06:56 Eosinophils # 0.0 k/uL (0-0.7) 05/12/17 06:56 Basophils # 0.0 k/uL (0-0.2) 05/12/17 06:56 Sodium 137 mmol/L (137-145) 05/12/17 06:56 Potassium 3.7 mmol/L (3.5-5.1) 05/12/17 06:56 Chloride 106 mmol/L (98-107) 05/12/17 06:56 Carbon Dioxide 22 mmol/L (22-30) 05/12/17 06:56 Anion Gap 9 mmol/L 05/12/17 06:56 BUN 5 mg/dL (7-17) L 05/12/17 06:56 Creatinine 0.66 mg/dL (0.52-1.04) 05/12/17 06:56 Est GFR (MDRD) Af Amer >60 (>60 ml/min/1.73 sqM) 05/12/17 06:56 Est GFR (MDRD) Non-Af >60 (>60 ml/min/1.73 sqM) 05/12/17 06:56 Glucose 84 mg/dL (74-99) 05/12/17 06:56 Plasma Lactic Acid Wilberto 0.8 mmol/L (0.7-2.0) 05/11/17 05:00 Calcium 8.3 mg/dL (8.4-10.2) L 05/12/17 06:56 Iron 12 ug/dL (37-170) L 05/12/17 06:56 TIBC 261 ug/dL (265-497) L 05/12/17 06:56 % Saturation 4.6 % (20-50) L 05/12/17 06:56 Ferritin 81 ng/mL (6-137) 05/12/17 06:56 Total Bilirubin 1.3 mg/dL (0.2-1.3) 05/12/17 06:56 AST 13 U/L (14-36) L 05/12/17 06:56 ALT 19 U/L (9-52) 05/12/17 06:56 Alkaline Phosphatase 44 U/L (38-126) 05/12/17 06:56 Total Protein 5.7 g/dL (6.3-8.2) L 05/12/17 06:56 Albumin 3.0 g/dL (3.5-5.0) L 05/12/17 06:56 Amylase 45 U/L (30-110) 05/11/17 05:00 Lipase 97 U/L (23-300) 05/11/17 05:00 Urine Color Yellow 05/11/17 05:00 Urine Appearance Cloudy (Clear) H 05/11/17 05:00 Urine pH 5.5 (5.0-8.0) 05/11/17 05:00 Ur Specific [place] 1.016 (1.001-1.035) 05/11/17 05:00 Urine Protein Negative (Negative) 05/11/17 05:00 Urine Glucose (UA) Negative (Negative) 05/11/17 05:00 Urine Ketones 1+ (Negative) H 05/11/17 05:00 Urine Blood Negative (Negative) 05/11/17 05:00 Urine Nitrite Negative (Negative) 05/11/17 05:00 Urine Bilirubin Negative (Negative) 05/11/17 05:00 Urine Urobilinogen <2.0 mg/dL (<2.0) 05/11/17 05:00 Ur Leukocyte Esterase Trace (Negative) H 05/11/17 05:00 Urine RBC 1 /hpf (0-5) 05/11/17 05:00 Urine WBC 6 /hpf (0-5) H 05/11/17 05:00 Ur Squamous Epith Cells 12 /hpf (0-4) H 05/11/17 05:00 Urine Bacteria Rare /hpf (None) H 05/11/17 05:00 Urine Mucus Rare /hpf (None) H 05/11/17 05:00 Urine HCG, Qual Not Detected (Not Detectd) 05/11/17 05:00 Microbiology 05/11/17 09:55 Urine,Voided Urine Culture - Preliminary Gram Neg Bacilli 05/11/17 05:00 Blood Blood Culture - Preliminary No Growth after 24 hours Assessment and Plan (1) Acute cholecystitis Narrative/Plan: 21-year-old female presents to hospital with severe abdominal pain. As a extensive history of what appears to be biliary colic over time. His had prior hospitalizations. Likely also recently had passed a stone. Now presents with severe abdominal pain. Evidence of acute cholecystitis and obstruction. Is taking the operating room where she had a laparoscopic cholecystectomy. She now doing quite well in the postoperative time frame. Antibiotic therapy with ampicillin sulbactam is adequate. Metronidazole can be discontinued and that adequate anaerobic therapy as achieved with the Unasyn, and would also have less propensity for nausea with the discontinuation of the metronidazole. Leukocytosis record related to her acute cholecystitis and is starting to show some improvement. Hyperbilirubinemia has also resolved. She does have evidence of some anemia of chronic illness and has a low iron and will need iron supplementation and follow up with her primary care physician after discharge. When ready for discharge completion course of therapy with Augmentin will be adequate to complete 7 days. Status: Acute (2) Fever Status: Acute (3) Leukocytosis Status: Acute
[2017-05-13] MEDS: ONDANSETRON 4 MG/2 ML VIAL IVP PRN ×2 (00:59→07:53)
[2017-05-13] MEDS: METOCLOPRAMIDE 5 MG/ML 2 ML VIAL IVP PRN ×2 (01:35→07:53)
[2017-05-13] MEDS: AMPICILLIN-SULBACTAM 3 GM in SODIUM CHLORIDE 0.9% 100 ML IVPB SCH ×2 (06:27→13:00)
[2017-05-13] MEDS: SODIUM CHLORIDE 0.9% 1,000 ML IV SCH (06:27)
[2017-05-13 07:24] VITALS: BP 117/66; PULSE 79; TEMP 98.7
[2017-05-13] MEDS: metroNIDAZOLE-NS PMX 500 MG in SALINE 1 100ML.BAG IVPB SCH (07:53)
[2017-05-13] MEDS: HEPARIN SODIUM,PORCINE 5,000 UNIT/ML 1 ML VIAL SQ SCH (07:54)
[2017-05-13] MEDS: PANTOPRAZOLE 40 MG/10 ML VIAL IV SCH (07:54)
[2017-05-13] MEDS ORDERED: MORPHINE SULFATE 2 MG/ML SYRINGE IV PRN (08:24)
[2017-05-13] MEDS ORDERED: HYDROcodone/APAP 7.5-325MG 1 EACH TAB PO PRN (08:24)
[2017-05-13] MEDS ORDERED: KETOROLAC 30 MG/ML 1 ML VIAL IVP STA (10:34)
[2017-05-13] MEDS ORDERED: KETOROLAC 30 MG/ML 1 ML VIAL IVP SCH (12:00)
--- NOTE | 2017-05-13 13:02 | P.DS ---
Providers Date of admission: 05/11/17 08:29 Expected date of discharge: 05/13/17 Attending physician: Melissa Chapman Consults: 05/12/17 11:46 Consult Physician Routine Consulting Provider: Liborio Wong Reason/Comments: sepsis Do you want consulting provider notified?: Yes Primary care physician: Stated None Hospital Course: 21-year-old female who has a long-standing history of gallstones onset 5 years prior. Patient was seen in [facility] where she was told she may have passed the stone 2-3 weeks ago patient had a recent attack. Patient continues to have persistent pain in the right upper quadrant the abdomen presented to the emergency room to be evaluated patient stated that her pain had been ongoing and has had multiple episodes of right upper quadrant abdominal pain 3 separate occasions. Patient described the pain as an achy colicky feature. Patient became concerned the pain became more severe had several episodes of vomiting with nausea. There was no change in bowel habits. In the emergency room the white count was 18.7 with a temp of 102.4 heart rate in the 80s hypotensive patient was treated for sepsis started on IV fluids and antibiotics with blood cultures drawn patient's sepsis was felt to be due to acute cholecystitis. Dr. Wong from infectious disease to participate in the plan of care. Patient was monitored closely throughout the hospitalization after initiating IV antibiotics was a noted improvement in patient's clinical status. Additionally the patient did undergo on the may laparoscopic cholecystectomy due to an acute cholecystitis with cystic duct obstruction. Postop patient had no new events was able to ambulate in the hallway tolerated the diet remained afebrile white count was trending down patient was felt to be appropriate to be discharged home May 13 wbc 16.4. Hemoglobin 10.9. Total bilirubin 1.3 ferritin 81 iron 12 electrolytes within normal limits temp is 98.7 blood pressure 117/66 Impression discharge diagnosis Present on admission persistent right upper quadrant abdominal pain suspect due to acute cholecystitis Present on admission sepsis meet SIRS criteria due to acute cholecystitis Present on admission leukocytosis febrile hypotensive meet SIRS criteria sepsis due to acute cholecystitis Tobacco abuse chronic Hepatomegaly History of gallstones Status post May 12 laparoscopic cholecystectomy due to acute cholecystitis The above impression and plan of care have been discussed and directed by signing physician. Snehal Campbell nurse practitioner acting as scribe for signing physician. Plan - Discharge Summary New Discharge Prescriptions: New Amoxic-Pot Clav 875-125Mg [Augmentin Xr 875-125] 1 each PO Q12HR #10 tablet Hydrocodone/Acetaminophen [[place] 5-325] 1 - 2 each PO Q6HR PRN #15 tab PRN Reason: Pain Ibuprofen [Motrin] 600 mg PO Q8HR PRN #30 tab PRN Reason: Pain HYDROcodone/APAP 5-325MG [[place] 5-325] 1 each PO Q4HR PRN tab PRN Reason: Mild Pain Discharge Medication List Amoxic-Pot Clav 875-125Mg [Augmentin Xr 875-125] 1 each PO Q12HR #10 tablet 05/23 [Rx] HYDROcodone/APAP 5-325MG [[place] 5-325] 1 each PO Q4HR PRN tab 05/13/17 [Rx] Hydrocodone/Acetaminophen [[place] 5-325] 1 - 2 each PO Q6HR PRN #15 tab 05/13/17 [Rx] Ibuprofen [Motrin] 600 mg PO Q8HR PRN #30 tab 05/13/17 [Rx] Follow up Appointment(s)/Referral(s): Melissa Chapman MD [STAFF PHYSICIAN] - 05/17/17 Nonstaff,Physician [REFERRING] - 1-2 days Patient Instructions/Handouts: Cholecystitis (GEN), Laparoscopic Cholecystectomy (DC) Activity/Diet/Wound Care/Special Instructions: Low fat diet. NO smoking, cessation information provided. May shower. No bathtub soaks. No swimming until cleared by surgeon. No lifting over 4 pounds in 2 weeks. Discharge Disposition: HOME SELF-CARE
== END 2017-05-13 14:48 | disposition home or self-care (01) | DRG 854 ==
LOC: EC 04:29 → 4MS4W 08:29
PROVIDERS: ADMIT Surgery Plastic and Reconstructive Surgery; ATTEND Surgery Plastic and Reconstructive Surgery
PROC: 0FT44ZZ Resection of Gallbladder, Percutaneous Endoscopic Approach (ICD-10-PCS; principal; 2017-05-12 13:00)
DX: A41.9 Sepsis, unspecified organism (principal); N39.0 Urinary tract infection, site not specified; I95.9 Hypotension, unspecified; K80.01 Calculus of gallbladder with acute cholecystitis with obstruction; R16.0 Hepatomegaly, not elsewhere classified; E61.1 Iron deficiency; D63.8 Anemia in other chronic diseases classified elsewhere; B96.20 Unspecified Escherichia coli [E. coli] as the cause of diseases classified elsewhere; E80.6 Other disorders of bilirubin metabolism; R63.4 Abnormal weight loss; K82.8 Other specified diseases of gallbladder; R11.2 Nausea with vomiting, unspecified; F41.9 Anxiety disorder, unspecified; F12.90 Cannabis use, unspecified, uncomplicated; F17.200 Nicotine dependence, unspecified, uncomplicated; Z71.6 Tobacco abuse counseling; Z71.3 Dietary counseling and surveillance; Z16.29 Resistance to other single specified antibiotic; Z16.11 Resistance to penicillins; Z16.39 Resistance to other specified antimicrobial drug; Z87.440 Personal history of urinary (tract) infections; Z84.1 Family history of disorders of kidney and ureter; Z86.79 Personal history of other diseases of the circulatory system
CPT/HCPCS: 36415; 74177; 76705; 80053; 81001; 81025; 82150; 82728; 83540; 83550; 83605; 83690; 85025; 87040; 87077; 87086; 87186; 88304; 96365; 96375; 99285

== ENCOUNTER 2018-03-20 21:11 | Emergency (ER) | payer BC ==
[2018-03-20 21:17] VITALS: BP 122/88; PULSE 83; RESP 20; TEMP 97.8
--- NOTE | 2018-03-20 22:17 | ED ---
Abdominal Pain HPI - General Chief Complaint: Abdominal Pain Stated Complaint: Female Time Seen by Provider: 03/20/18 22:00 Source: patient Mode of arrival: ambulatory Limitations: no limitations - History of Present Illness Initial Comments: This patient is a 22-year-old woman who presents to be evaluated for right flank pain that is been going on a little over 24 hours now. The patient states she is also having dysuria, frequency and urgency. She states similar to previous urinary tract infection that she had. She has tried taking some [id number] Azo, but states that she has not had any relief. She describes pain as aching, constant, moderate in severity. She has not noted worsening or relieving factors. She has also had a little bit of associated nausea but denies any other associated symptoms. MD Complaint: flank pain Onset/Timin -: days(s) Location: R flank Radiation: none Migration to: no migration Severity: moderate Quality: aching Consistency: constant Improves With: nothing Worsens With: nothing Associated Symptoms: nausea - Related Data Previous Rx's Medication Instructions Recorded Sulfamethox-Tmp 800-160Mg [Bactrim 1 each PO Q12HR #14 tab 03/20/18 Ds] Allergies Allergy/AdvReac Type Severity Reaction Status Date / Time No Known Allergies Allergy Verified 03/20/18 22:07 Review of Systems ROS Statement: Those systems with pertinent positive or pertinent negative responses have been documented in the HPI. ROS Other: All systems not noted in ROS Statement are negative. Constitutional: Denies: fever, chills, weakness Respiratory: Denies: cough, dyspnea Cardiovascular: Denies: chest pain, palpitations, edema Gastrointestinal: Reports: abdominal pain, nausea, diarrhea (States she has chronic diarrhea since cholecystectomy). Denies: vomiting, constipation, melena , hematochezia Genitourinary: Reports: urgency, dysuria, frequency. Denies: hematuria, discharge, abnormal menses Musculoskeletal: Denies: back pain Skin: Denies: rash Neurological: Denies: headache, weakness, numbness Past Medical History Additional Past Medical History / Comment(s): "gall stones", "irreg heart beat" , kidney infection. History of Any Multi-Drug Resistant Organisms: ESBL Date of last positivie culture/infection: 05/11/17 ESBL-E.coli MDRO Source:: Urine Past Surgical History: Cholecystectomy Additional Past Anesthesia/Blood Transfusion Reaction / Comment(s): Pt has never had anesthesia. Past Psychological History: Anxiety Smoking Status: Current some day smoker Past Alcohol Use History: Abuse, Daily Past Drug Use History: Marijuana - Past Family History Mother Family Medical History: No Reported History Father Family Medical History: Renal Disease Additional Family Medical History / Comment(s): Father has had kidney stones. General Exam Limitations: no limitations General appearance: alert, in no apparent distress Head exam: Present: atraumatic, normocephalic Eye exam: Present: normal appearance. Absent: scleral icterus, conjunctival injection ENT exam: Present: normal oropharynx Neck exam: Present: normal inspection Respiratory exam: Present: normal lung sounds bilaterally. Absent: respiratory distress, wheezes, rales, rhonchi, stridor Cardiovascular Exam: Present: regular rate, normal rhythm, normal heart sounds. Absent: systolic murmur, diastolic murmur, rubs, gallop GI/Abdominal exam: Present: soft, tenderness (Mild suprapubic tenderness without rebound or guarding), normal bowel sounds. Absent: distended, guarding , rebound, rigid, mass, pulsatile mass, hernia Extremities exam: Present: normal inspection, normal capillary refill. Absent: pedal edema, calf tenderness Back exam: Present: normal inspection. Absent: CVA tenderness (R), CVA tenderness (L) Neurological exam: Present: alert Skin exam: Present: warm, dry, intact, normal color. Absent: rash Course Vital Signs 03/20/18 21:13 Temperature 97.8 F Pulse Rate 83 Respiratory 20 Rate Blood Pressure 122/88 O2 Sat by Pulse 99 Oximetry Medical Decision Making - Lab Data Result diagrams: 03/20/18 22:20 03/20/18 22:20 Lab Results 03/20/18 03/20/18 03/20/18 Range/Units 22:10 22:10 22:20 WBC (3.8-10.6) k/uL RBC (3.80-5.40) m/uL Hgb (11.4-16.0) gm/dL Hct (34.0-46.0) % MCV (80.0-100.0) fL MCH (25.0-35.0) pg MCHC (31.0-37.0) g/dL RDW (11.5-15.5) % Plt Count (150-450) k/uL Neutrophils % % Lymphocytes % % Monocytes % % Eosinophils % % Basophils % % Neutrophils # (1.3-7.7) k/uL Lymphocytes # (1.0-4.8) k/uL Monocytes # (0-1.0) k/uL Eosinophils # (0-0.7) k/uL Basophils # (0-0.2) k/uL Sodium 140 (137-145) mmol/L Potassium 3.8 (3.5-5.1) mmol/L Chloride 102 (98-107) mmol/L Carbon Dioxide 24 (22-30) mmol/L Anion Gap 14 mmol/L BUN 16 (7-17) mg/dL Creatinine 0.80 (0.52-1.04) mg/dL Est GFR (CKD-EPI)AfAm >90 (>60 ml/min/1.73 sqM) Est GFR (CKD-EPI)NonAf >90 (>60 ml/min/1.73 sqM) Glucose 93 (74-99) mg/dL Calcium 9.6 (8.4-10.2) mg/dL Total Bilirubin 2.7 H (0.2-1.3) mg/dL AST 15 (14-36) U/L ALT 22 (9-52) U/L Alkaline Phosphatase 47 (38-126) U/L Total Protein 7.2 (6.3-8.2) g/dL Albumin 4.5 (3.5-5.0) g/dL Amylase 69 (30-110) U/L Lipase 193 (23-300) U/L Urine Color Yellow Urine Appearance Cloudy H (Clear) Urine pH 5.5 (5.0-8.0) Ur Specific [place] 1.019 (1.001-1.035) Urine Protein 2+ H (Negative) Urine Glucose (UA) Negative (Negative) Urine Ketones Negative (Negative) Urine Blood Moderate H (Negative) Urine Nitrite Positive H (Negative) Urine Bilirubin Negative (Negative) Urine Urobilinogen <2.0 (<2.0) mg/dL Ur Leukocyte Esterase Large H (Negative) Urine RBC 26 H (0-5) /hpf Urine WBC >182 H (0-5) /hpf Urine WBC Clumps Many H (None) /hpf Ur Squamous Epith Cells 2 (0-4) /hpf Urine Bacteria Occasional H (None) /hpf Urine Mucus Rare H (None) /hpf Urine HCG, Qual Not Detected (Not Detectd) 03/20/18 Range/Units 22:20 WBC 14.9 H (3.8-10.6) k/uL RBC 4.34 (3.80-5.40) m/uL Hgb 13.6 (11.4-16.0) gm/dL Hct 39.9 (34.0-46.0) % MCV 91.9 (80.0-100.0) fL MCH 31.3 (25.0-35.0) pg MCHC 34.1 (31.0-37.0) g/dL RDW 13.7 (11.5-15.5) % Plt Count 274 (150-450) k/uL Neutrophils % 79 % Lymphocytes % 15 % Monocytes % 4 % Eosinophils % 1 % Basophils % 0 % Neutrophils # 11.8 H (1.3-7.7) k/uL Lymphocytes # 2.3 (1.0-4.8) k/uL Monocytes # 0.6 (0-1.0) k/uL Eosinophils # 0.1 (0-0.7) k/uL Basophils # 0.0 (0-0.2) k/uL Sodium (137-145) mmol/L Potassium (3.5-5.1) mmol/L Chloride (98-107) mmol/L Carbon Dioxide (22-30) mmol/L Anion Gap mmol/L BUN (7-17) mg/dL Creatinine (0.52-1.04) mg/dL Est GFR (CKD-EPI)AfAm (>60 ml/min/1.73 sqM) Est GFR (CKD-EPI)NonAf (>60 ml/min/1.73 sqM) Glucose (74-99) mg/dL Calcium (8.4-10.2) mg/dL Total Bilirubin (0.2-1.3) mg/dL AST (14-36) U/L ALT (9-52) U/L Alkaline Phosphatase (38-126) U/L Total Protein (6.3-8.2) g/dL Albumin (3.5-5.0) g/dL Amylase (30-110) U/L Lipase (23-300) U/L Urine Color Urine Appearance (Clear) Urine pH (5.0-8.0) Ur Specific [place] (1.001-1.035) Urine Protein (Negative) Urine Glucose (UA) (Negative) Urine Ketones (Negative) Urine Blood (Negative) Urine Nitrite (Negative) Urine Bilirubin (Negative) Urine Urobilinogen (<2.0) mg/dL Ur Leukocyte Esterase (Negative) Urine RBC (0-5) /hpf Urine WBC (0-5) /hpf Urine WBC Clumps (None) /hpf Ur Squamous Epith Cells (0-4) /hpf Urine Bacteria (None) /hpf Urine Mucus (None) /hpf Urine HCG, Qual (Not Detectd) Disposition Clinical Impression: Urinary tract infection Disposition: HOME SELF-CARE Condition: Good Instructions: Urinary Tract Infection in Women (ED) Prescriptions: Sulfamethox-Tmp 800-160Mg [Bactrim Ds] 1 each PO Q12HR #14 tab Is patient prescribed a controlled substance at d/c from ED?: No Referrals: None,Stated [Primary Care Provider] - 1-2 days
[2018-03-20 22:22] LABS: Appearance,Urine Cloudy (Clear); Bacteria,Urine Occasional /hpf; Bilirubin,Urine Negative (Negative); Blood,Urine Moderate (Negative); Color,Urine Yellow; Glucose,Urine (UA) Negative (Negative); Ketones,Urine Negative (Negative); Leukocyte Esterase,Urine Large (Negative); Mucus,Urine Rare /hpf; Nitrite,Urine Positive (Negative); PH, Urine 5.5 (5.0-8.0); Protein,Urine 2+ (Negative); RBC,Urine 26 /hpf (0-5); Specific Gravity,Urine 1.019 (1.001-1.035); Squamous Epithelial Cell,Urine 2 /hpf (0-4); Urobilinogen,Urine <2.0 mg/dL (<2.0); WBC,Urine >182 /hpf (0-5)
[2018-03-20 22:32] LABS: Basophils % (A) 0 %; Eosinophils # (A) 0.1 k/uL (0-0.7); Eosinophils % (A) 1 %; HCT 39.9 % (34.0-46.0); HGB 13.6 gm/dL (11.4-16.0); Lymphocytes # (A) 2.3 k/uL (1.0-4.8); Lymphocytes % (A) 15 %; MCH 31.3 pg (25.0-35.0); MCHC 34.1 g/dL (31.0-37.0); MCV 91.9 fL (80.0-100.0); Mean Platelet Volume 7.1; Monocytes # (A) 0.6 k/uL (0-1.0); Monocytes % (A) 4 %; Neutrophils # (A) 11.8 k/uL (1.3-7.7); Neutrophils % (A) 79 %; Platelet Count 274 k/uL (150-450); RBC 4.34 m/uL (3.80-5.40); RDW 13.7 % (11.5-15.5); WBC 14.9 k/uL (3.8-10.6)
[2018-03-20 22:50] LABS: ALT 22 U/L (9-52); AST 15 U/L (14-36); Albumin 4.5 g/dL (3.5-5.0); Alkaline Phosphatase 47 U/L (38-126); Amylase 69 U/L (30-110); Anion Gap 14 mmol/L; Blood Urea Nitrogen 16 mg/dL (7-17); Calcium 9.6 mg/dL (8.4-10.2); Carbon Dioxide 24 mmol/L (22-30); Chloride 102 mmol/L (98-107); Glucose 93 mg/dL (74-99); Lipase 193 U/L (23-300); Potassium 3.8 mmol/L (3.5-5.1); Sodium 140 mmol/L (137-145); Total Bilirubin 2.7 mg/dL (0.2-1.3); Total Protein 7.2 g/dL (6.3-8.2)
[2018-03-20] MEDS ORDERED: SULFAMETHOX-TMP 800-160MG 1 EACH TAB PO STA (22:52)
== END 2018-03-20 23:04 | disposition home or self-care (01) ==
LOC: EC 21:11
DX: N39.0 Urinary tract infection, site not specified (principal); R11.0 Nausea; F17.200 Nicotine dependence, unspecified, uncomplicated; Z90.49 Acquired absence of other specified parts of digestive tract; Z84.1 Family history of disorders of kidney and ureter
CPT/HCPCS: 36415; 80053; 81001; 81025; 82150; 83690; 85025; 99284